=== PATIENT | female | born 1995 | race Caucasian/White ===

== ENCOUNTER 2017-11-23 17:43 | Emergency (ER) | payer OTHER ==
--- NOTE | 2017-11-23 17:53 | EDPHY ---
H & P Time Seen by Provider: 11/23/17 17:48 HPI/ROS: Chief complaint. Syncope HPI. 22-year-old female presents emergency department by EMS after having a syncopal episode. She and her boyfriend took about 30 mg of at a [place]. About 30 min later she began to feel dizzy. They were sitting in a parked she stood up and had a brief passing out episode about 1 hr ago. She had no headache or chest pain or shortness of breath no abdominal pain. No injury from the syncopal episode. They are traveling from the [place]. She has no unusual leg pain or swelling. No history of doing intervals. No history of passing out. Normally healthy. ROS Constitutional. Weakness Eyes. no problems with vision ENT. no sore throat, no nasal drainage Cardiovascular. no chest pain Respiratory. no shortness of breath, no cough Abdominal. no abdominal pain, no nausea/vomiting, no diarrhea . no problems urinating MS. no calf pain/swelling, no neck/back pain, no joint pain Skin. no rash Lymph. no swollen glands Neuro. Syncope, dizziness Past Medical/Surgical History: Healthy Social History: Single, nonsmoker, no alcohol Physical Exam: General Appearance: Alert pleasant well-developed female mild distress vital signs are stable Eyes: Pupils equal and round no pallor or injection. ENT, Mouth: Mucous membranes are moist. Respiratory: There are no retractions, lungs are clear to auscultation. Cardiovascular: Regular rate and rhythm. Gastrointestinal: Abdomen is soft and nontender, no masses, bowel sounds normal. Neurological: Awake and alert, sensory and motor exams grossly normal. Skin: Warm and dry, no rashes. Musculoskeletal: Neck is supple nontender. Extremities symmetrical, full range of motion. Psychiatric: Patient is oriented X 3, there is no agitation. Constitutional: Initial Vital Signs Temperature (C) 36.8 C 11/23/17 17:43 Heart Rate 106 H 11/23/17 17:43 Respiratory Rate 21 H 11/23/17 17:43 Blood Pressure 129/81 H 11/23/17 17:43 O2 Sat (%) 98 11/23/17 17:43 O2 Delivery Mode Room Air Allergies/Adverse Reactions: No Known Allergies Allergy (Verified 11/23/17 18:01) Home Medications: Medication Instructions Recorded NK [No Known Home Meds] 11/23/17 Medical Decision Making - Diagnostics EKG Interpretation: EKG interpreted by me shows sinus tachycardia. Normal interval and axis. QRS is normal there is no significant ST elevation or depression. Rate is 108 Procedures: IV normal saline, monitor ED Course/Re-evaluation: Re-evaluation at 7:30 p.m.. Patient is stable. Patient and I discussed laboratory evaluation as well as EKG findings. We discussed treatment plan including criteria for return importance of follow-up further evaluation. She expresses understanding and agreement. She is ambulated in the emergency department without trouble Differential Diagnosis: I think her syncope and symptoms related to THC ingestion. No evidence for arrhythmia or acute coronary syndrome. - Data Points Laboratory Results: Laboratory Results 11/23/17 17:00 11/23/17 17:00 11/23/17 11/23/17 11/23/17 17:00 17:00 17:00 WBC 10.31 10^3/uL H 10^3/uL (3.80-9.50) RBC 5.07 10^6/uL 10^6/uL (4.18-5.33) Hgb 11.0 g/dL L g/dL (12.6-16.3) Hct 35.6 % L % (38.0-47.0) MCV 70.2 fL L fL (81.5-99.8) MCH 21.7 pg L pg (27.9-34.1) MCHC 30.9 g/dL L g/dL (32.4-36.7) RDW 16.4 % H % (11.5-15.2) Plt Count 250 10^3/uL 10^3/uL (150-400) MPV TNP Neut % (Auto) 47.8 % % (39.3-74.2) Lymph % (Auto) 43.6 % % (15.0-45.0) [place] % (Auto) 7.4 % % (4.5-13.0) Eos % (Auto) 0.6 % % (0.6-7.6) Baso % (Auto) 0.4 % % (0.3-1.7) Nucleat RBC Rel Count 0.0 % % (0.0-0.2) Absolute Neuts (auto) 4.90 10^3/uL 10^3/uL (1.70-6.50) Absolute Lymphs (auto) 4.46 10^3/uL H 10^3/uL (1.00-3.00) Absolute Monos (auto) 0.76 10^3/uL 10^3/uL (0.30-0.80) Absolute Eos (auto) 0.06 10^3/uL 10^3/uL (0.03-0.40) Absolute Basos (auto) 0.04 10^3/uL 10^3/uL (0.02-0.10) Absolute Nucleated RBC 0.00 10^3/uL 10^3/uL (0-0.01) Immature Gran % 0.2 % % (0.0-1.1) Immature Gran # 0.02 10^3/uL 10^3/uL (0.00-0.10) Sodium 136 mEq/L mEq/L (135-145) Potassium 3.5 mEq/L mEq/L (3.3-5.0) Chloride 106 mEq/L mEq/L (97-110) Carbon Dioxide 24 mEq/l mEq/l (22-31) Anion Gap 6 mEq/L L mEq/L (8-16) BUN 18 mg/dL mg/dL (7-23) Creatinine 0.7 mg/dL mg/dL (0.6-1.0) Estimated GFR > 60 Glucose 112 mg/dL H mg/dL (70-100) Calcium 9.5 mg/dL mg/dL (8.5-10.4) Beta HCG, Qual NEGATIVE Departure - Departure Disposition: Home, Routine, Self-Care Clinical Impression: Syncope and collapse Condition: Good Instructions: Syncope (ED) Additional Instructions: Drink plenty of fluids and stay hydrated. Regular meals and regular sleep. No more edibles tonight. Return for another passing out episode or worsening symptoms. Recheck in 1-2 days if not improved Referrals: Patient,NotPresent [Unknown] - As per Instructions
--- NOTE | 2017-11-23 18:15 | CPEKG ---
Heart Rate: 108 RR Interval: 556 P-R Interval: 140 QRSD Interval: 78 QT Interval: 288 QTC Interval: 386 P Marion: 38 QRS Marion: 71 T Wave Marion: -84 EKG Severity - OTHERWISE NORMAL ECG - EKG Impression: SINUS TACHYCARDIA Electronically Signed By: Robert Mccann 23-Nov-2017 22:16:48
[2017-11-23 18:59] LABS: PLATELET COUNT 250 10^3/uL (150-400)
[2017-11-23 20:44] VITALS: BP 141/74
== END 2017-11-23 20:43 | disposition home or self-care (01) ==
DX: R55 Syncope and collapse (principal)